=== PATIENT | female | born 1960 | race Asian ===

== ENCOUNTER 2021-06-23 17:34 | Emergency (ER) | payer OTHER, SELFPAY ==
[2021-06-23] VITALS (8 sets, daily range): BP systolic 125–185; BP diastolic 61–110; PULSE 109–180; RESP 22–39; TEMP 36.8; O2SAT 88–100; BMI 22.1
--- NOTE | 2021-06-23 18:29 | DI.RAD.S_ITS ---
PROCEDURE: XR CHEST 2V INDICATIONS: shortness of breath TECHNIQUE: 2 views of the chest were acquired. COMPARISON: None. FINDINGS: Surgical changes and devices: None. Lungs and pleura: Moderate right pleural effusion is seen with atelectasis of right middle and lower lobe. There is pulmonary vascular congestion and pulmonary edema. No gross pneumothorax. Mediastinum: Mediastinal contours are normal. Heart size is enlarged. Bones and chest wall: No suspicious bony abnormalities. Soft tissues appear unremarkable. IMPRESSION: Moderate right pleural effusion and right middle and lower lobe atelectasis. Pulmonary vascular congestion and pulmonary edema. No pneumothorax. Dictated by: Christopher Grimaldo M.D. on 06/23/2021 at 19:04 Approved by: Christopher Grimaldo M.D. on 06/23/2021 at 19:05
[2021-06-23 19:15] LABS: Alanine Aminotransferase 57 IU/L (<35); Albumin 4.3 g/dL (3.5-5.0); Albumin Globulin Ratio 1.2 (1.0-2.8); Alkaline Phosphatase 80 U/L (38-126); Aspartate Aminotransferase 73 IU/L (14-36); BUN Creatinine Ratio 31.3 (6-22); Bilirubin Total 1.4 mg/dL (0.2-1.3); Blood Urea Nitrogen 15 mg/dL (7-17); Calcium 8.8 mg/dL (8.4-10.2); Carbon Dioxide 25 mmol/L (22-32); Chloride 106 mmol/L (98-107); Estimated Glomerular Filt Rate > 60.0 mL/min (>60); Globulin 3.5 g/dL (1.7-4.1); Glucose 104 mg/dL (80-110); HEMOLYSIS 15 (0-50); Lactate (Lactic Acid) 0.9 mmol/L (0.7-2.1); Potassium 4.3 mmol/L (3.4-5.1); Sodium 136 mmol/L (137-145); Total Protein 7.8 g/dL (6.3-8.2)
[2021-06-23 19:16] LABS: Add Manual Diff / Slide Review NO; Basophils Absolute Auto 0 /uL (0-100); Basophils Percent Auto 0.3 % (0-2); Eosinophils Absolute Auto 0 /uL (0-450); Eosinophils Percent Auto 0.3 % (2-4); Hematocrit 38.2 % (36-46); Lymphocytes Absolute Auto 1100 /uL (1100-4500); Lymphocytes Percent Auto 9.8 % (25-40); Mean Corpuscular HGB Conc 33.9 % (30-36); Mean Corpuscular Volume 91.3 fL (80-100); Monocytes Absolute Auto 700 /uL (0-900); Monocytes Percent Auto 6.7 % (3-14); Neutrophils Absolute Auto 9000 /uL (1500-7000); Neutrophils Percent Auto 82.9 % (50-75); Platelet Count 296 X10^3/uL (150-400); Red Blood Cell Count 4.18 X10^6/uL (4.0-5.2); White Blood Cell Count 10.9 X10^3/uL (4.5-11.0)
[2021-06-23 19:27] LABS: NT-proBNP (BNP-Adult 18+) 5880 pg/mL (<125); Troponin I 0.093 ng/mL (0.01-0.034)
[2021-06-23 19:33] LABS: Procalcitonin 0.07 ng/mL (<0.5)
--- NOTE | 2021-06-23 21:48 | ED_ITS ---
HPI - SOB/Dyspnea <Kenrick Moe, DO - Last Filed: 06/24/21 19:03> General Chief Complaint: Shortness of Breath/Dyspnea Stated Complaint: SOB Time Seen by Provider: 06/23/21 21:47 Source: family Mode of arrival: Ambulatory Limitations: no limitations History of Present Illness HPI Narrative: 60-year-old female nonsmoker with history of reactive airway disease presents from the walk-in clinic for evaluation of shortness of breath. She states that she has been increasingly fatigued with worsening shortness of breath, primarily with exertion over the past week or so but significantly changed over the past 24 hours. She states that she gets short of breath with even taking a few steps . She has had no runny nose, sore throat nor fever or chills. She denies any chest pain, dizziness or lightheadedness. She has had no nausea, vomiting or diarrhea. She denies any history of the same. She denies any recent travel, history of blood clot or known cancer. Related Data Home Medications Medication Instructions Recorded Confirmed CA PANTOTHENATE/FOLIC ACID/VIT 1 tab PO QDAY #0 12/20/10 06/23/21 (MULTIVITAMIN) [ALBUTEROL] #0 12/20/10 06/23/21 [PULMICORT] 2 puff BID #0 12/20/10 06/23/21 fexofenadine 180 mg tablet 180 mg PO QDAY #0 12/20/10 06/23/21 ASPIRIN (Aspir-Low) 81 mg PO Q DAY #0 01/09/11 06/23/21 Fish Oil (#FISH OIL) 1 iu PO Q DAY #0 01/09/11 06/23/21 montelukast 10 mg tablet 10 mg PO QDAY #0 12/11/11 06/23/21 (Singulair) Previous Rx's Medication Instructions Recorded NORTRIPTYLINE HCL (Nortriptyline 10 mg PO HS #30 12/11/11 HCl) citalopram 20 mg tablet (Celexa) 40 mg PO QDAY #90 12/11/11 lorazepam 0.5 mg tablet (Ativan) 0 PO SEE INSTRUCTIONS #60 12/11/11 zolpidem 10 mg tablet (Ambien) 10 mg PO HSP #30 12/11/11 Allergies Allergy/AdvReac Type Severity Reaction Status Date / Time SULFA (sulfonamide) Allergy Unknown UNKNOWN Uncoded 06/23/21 17:10 Sulfites Allergy Unknown Uncoded 06/23/21 17:10 Review of Systems <Kenrick Moe DO - Last Filed: 06/24/21 19:03> Review of Systems Narrative: GENERAL: Denies chills, fatigue, malaise, fever, sweats. HEENT: Denies sinus pain, ear pain, sore throat, difficulty swallowing, dizziness. RESPIRATORY: See HPI CARDIOVASCULAR: Denies chest pain, palpitations, orthopnea, edema, GASTROINTESTINAL: Denies nausea, vomiting, abdominal pain, diarrhea, constipation, melena. : Denies dysuria, frequency, incontinence, hematuria, urinary retention. MUSCULOSKELETAL: denies weakness, joint pain, or bony pain SKIN: Denies rash, skin lesions, or other NEUROLOGIC: Denies weakness, headache, numbness, change in speech, confusion, seizures, incoordination. PSYCHIATRIC: No concerning psychosocial issues. 12 point review of systems is negative except for those stated above Patient History <Kenrick Moe DO - Last Filed: 06/24/21 19:03> Social History Smoking Status: Never smoker Smoking Status: Never smoker Substance Use Type: does not use Exam <Kenrick Moe DO - Last Filed: 06/24/21 19:03> Narrative Exam Narrative: GENERAL: [60] year old patient appears stated age. Thin, increased work of breathing HEAD: Atraumatic. Normocephalic. EYES: Pupils equal round and reactive. Extraocular motions intact. No scleral icterus. No injection or drainage. ENT: Nose without bleeding, purulent drainage. Throat without erythema, tonsillar hypertrophy or exudate. Airway patent. NECK: Trachea midline. Non tender CARDIOVASCULAR: Tachycardic but regular rhythm with notable holosystolic murmur RESPIRATORY: Decreased lung sounds right base with faint crackles in left, increased work of breathing GASTROINTESTINAL: Abdomen soft, non-tender, nondistended. EXTREMITIES: No edema or joint tenderness. BACK: Nontender without deformity or crepitance. No flank tenderness. NEURO: AOx3. SKIN: No rash or erythema of visible areas Initial Vital Signs Initial Vital Signs: Vital Signs Temperature 98.2 F 06/23/21 18:23 Pulse Rate 110 H 06/23/21 18:23 Respiratory Rate 22 06/23/21 18:23 Blood Pressure 125/61 06/23/21 18:23 Pulse Oximetry 97 06/23/21 18:23 <Darryl Menchaca MD - Last Filed: 06/24/21 18:25> Initial Vital Signs Initial Vital Signs: Vital Signs Temperature 98.2 F 06/23/21 18:23 Pulse Rate 110 H 06/23/21 18:23 Respiratory Rate 22 06/23/21 18:23 Blood Pressure 125/61 06/23/21 18:23 Pulse Oximetry 97 06/23/21 18:23 Course <Kenrick Moe DO - Last Filed: 06/24/21 19:03> Orders Ordered: ED Orders 06/24/21 13:48 PTT [Partial Thromboplastin Time] Q6H 06/24/21 14:25 Troponin I Stat 06/24/21 19:45 PTT [Partial Thromboplastin Time] Q6H 06/25/21 01:30 PTT [Partial Thromboplastin Time] Q6H Partial Thromboplastin Time DAILY 06/25/21 05:00 Hemoglobin and Hematocrit DAILY 06/26/21 01:30 Partial Thromboplastin Time DAILY 06/27/21 01:30 Partial Thromboplastin Time DAILY 06/28/21 01:30 Partial Thromboplastin Time DAILY 06/29/21 01:30 Partial Thromboplastin Time DAILY 06/30/21 01:30 Partial Thromboplastin Time DAILY Heparin Sodium/Dextrose (Heparin Drip) 25,000 unit in 500 mls @ 20 mls/hr IV CONT LEONA; Protocol Last Titration: 06/24/21 18:42 Dose: 0 units/hr, 0 mls/hr Documented by: Titration: 06/24/21 09:45 Dose: 850 units/hr, 17 mls/hr Documented by: Titration: 06/24/21 08:46 Dose: 0 units/hr, 0 mls/hr Documented by: Admin: 06/24/21 02:15 Dose: 1,000 units/hr, 20 mls/hr Documented by: THALIA Amiodarone HCl/Dextrose (Nexterone) 360 mg in 200 mls @ 16.7 mls/hr IV CONT LEONA; Protocol Stop: 06/24/21 19:44 Last Titration: 06/24/21 18:53 Dose: 0 mls/hr Documented by: Admin: 06/24/21 18:52 Dose: 16.7 mls/hr Documented by: Titration: 06/24/21 18:52 Dose: 0 mls/hr Documented by: Titration: 06/24/21 18:43 Dose: 0 mls/hr Documented by: Admin: 06/24/21 07:41 Dose: 16.7 ml/hr, 16.7 mls/hr Documented by: NANDO Discontinued Medications Acetaminophen (Acetaminophen 325 Mg Tablet) 650 mg PO NOW ONE Stop: 06/24/21 05:44 Last Admin: 06/24/21 05:45 Dose: 650 mg Documented by: THALIA Acetaminophen (Acetaminophen 325 Mg Tablet) 650 mg PO NOW ONE Stop: 06/24/21 15:23 Last Admin: 06/24/21 15:36 Dose: 650 mg Documented by: LYNDSEY Adenosine (Adenosine 6 Mg/2 Ml Vial) 6 mg IV NOW ONE Stop: 06/24/21 00:00 Last Admin: 06/24/21 00:05 Dose: 6 mg Documented by: THALIA Albuterol (Albuterol 1.25 Mg/3 Ml Neb (Pediatric)) 1.25 mg INH NOW ONE Stop: 06/23/21 23:25 Last Admin: 06/24/21 07:41 Dose: Not Given Documented by: NANDO Diltiazem HCl (Diltiazem 5 Mg/Ml Sdv) 10 mg IV NOW ONE Stop: 06/23/21 23:29 Last Admin: 06/23/21 23:30 Dose: 10 mg Documented by: THALIA Furosemide (Furosemide 40 Mg/4 Ml Vial) 40 mg IV NOW ONE Stop: 06/24/21 02:24 Last Admin: 06/24/21 02:29 Dose: 40 mg Documented by: THALIA Furosemide (Furosemide 40 Mg/4 Ml Vial) 40 mg IV NOW ONE Stop: 06/24/21 05:33 Last Admin: 06/24/21 05:36 Dose: 20 mg Documented by: THALIA Furosemide (Furosemide 40 Mg/4 Ml Vial) 40 mg IV NOW ONE Stop: 06/24/21 17:37 Last Admin: 06/24/21 17:55 Dose: 40 mg Documented by: LYNDSEY Heparin Sodium (Porcine) (Heparin 5,000 Unit/Ml Vial) 4,000 unit IV NOW ONE Stop: 06/24/21 01:25 Last Admin: 06/24/21 01:54 Dose: 4,000 unit Documented by: THALIA Amiodarone HCl/Dextrose (Nexterone) 150 mg in 100 mls @ 600 mls/hr IV NOW ONE; Protocol Stop: 06/24/21 01:33 Last Infusion: 06/24/21 01:50 Dose: 0 mls/hr Documented by: Admin: 06/24/21 01:37 Dose: 600 mls/hr Documented by: THALIA Amiodarone HCl/Dextrose (Nexterone) 360 mg in 200 mls @ 33.333 mls/hr IV NOW ONE; Protocol Stop: 06/24/21 07:23 Last Titration: 06/24/21 07:36 Dose: 0 ml/hr, 0 mls/hr Documented by: Admin: 06/24/21 01:49 Dose: 33.33 ml/hr, 33.33 mls/hr Documented by: THALIA Lorazepam (Lorazepam 2 Mg/Ml Inj) 0.5 mg IV NOW ONE Stop: 06/23/21 23:53 Last Admin: 06/24/21 02:09 Dose: 0.5 mg Documented by: THALIA Potassium Chloride (Potassium Chloride 20 Meq Tab) 20 meq PO NOW ONE Stop: 06/24/21 17:39 Last Admin: 06/24/21 17:55 Dose: 20 meq Documented by: LYNDSEY Propofol (Propofol 200 Mg/20 Ml Vial) 55 mg 1 mg/kg (55 mg) IV NOW ONE Stop: 06/24/21 00:11 Last Admin: 06/24/21 00:34 Dose: 30 mg Documented by: THALIA Reevaluation(s) Reevaluation #1: 775 dilute urine in wiggins after Lasix Time: 03:30 Consultations Consultation #1: call to Dr. Gusman (cardiology at [facility]). She finds an old echo from 2010 noting critical aortic stenosis (0.9 cm sq) with aortic insufficiency, LVH, diastolic failure and eF 60-65%. She recommends rate control with amiodarone, heparin, transfer to [facility] or other hospital with ICU/Cardio ERICKA Consultation #2: call to [facility] ICU. After lengthy discussion of clinical course he recommends diuresis here, monitor for decreased need for respiratory support and reevaluate in a few hours. Vital Signs Vital signs: Vital Signs - 8 hr 06/24/21 11:15 06/24/21 11:30 06/24/21 11:45 Pulse Rate 82 90 91 H Respiratory Rate 16 28 H 30 H Blood Pressure 107/65 112/68 119/71 Pulse Oximetry 99 97 97 06/24/21 12:00 06/24/21 12:15 06/24/21 12:30 Pulse Rate 84 80 91 H Respiratory Rate 18 14 28 H Blood Pressure 118/68 109/62 118/66 Pulse Oximetry 99 99 98 06/24/21 12:45 06/24/21 13:00 06/24/21 13:15 Pulse Rate 86 81 86 Respiratory Rate 29 H 15 20 Blood Pressure 115/64 112/61 116/70 Pulse Oximetry 97 99 100 06/24/21 13:30 06/24/21 13:45 06/24/21 14:00 Pulse Rate 89 88 82 Respiratory Rate 27 H 30 H 24 Blood Pressure 118/65 114/64 109/59 L Pulse Oximetry 99 98 97 06/24/21 14:15 06/24/21 14:30 06/24/21 14:45 Pulse Rate 79 86 86 Respiratory Rate 15 31 H 27 H Blood Pressure 108/63 107/63 105/63 Pulse Oximetry 99 97 96 06/24/21 15:00 06/24/21 15:15 06/24/21 15:30 Pulse Rate 88 89 86 Respiratory Rate 28 H 29 H 29 H Blood Pressure 105/63 116/73 111/69 Pulse Oximetry 98 97 97 06/24/21 15:45 06/24/21 16:00 06/24/21 16:15 Pulse Rate 88 88 81 Respiratory Rate 22 28 H 16 Blood Pressure 133/83 112/67 105/61 Pulse Oximetry 98 99 06/24/21 16:30 06/24/21 16:45 06/24/21 17:00 Pulse Rate 79 89 90 Respiratory Rate 14 31 H 30 H Blood Pressure 102/61 112/66 113/72 Pulse Oximetry 99 96 97 06/24/21 17:15 06/24/21 17:30 06/24/21 17:45 Pulse Rate 86 87 87 Respiratory Rate 29 H 32 H 29 H Blood Pressure 108/59 L 111/64 104/61 Pulse Oximetry 97 98 98 06/24/21 18:00 06/24/21 18:15 06/24/21 18:30 Pulse Rate 86 89 91 H Respiratory Rate 30 H 28 H 32 H Blood Pressure 107/64 112/74 114/76 Pulse Oximetry 97 97 97 <Darryl Menchaca MD - Last Filed: 06/24/21 18:25> Orders Ordered: ED Orders 06/24/21 13:48 PTT [Partial Thromboplastin Time] Q6H 06/24/21 14:25 Troponin I Stat 06/24/21 19:45 PTT [Partial Thromboplastin Time] Q6H 06/25/21 01:30 PTT [Partial Thromboplastin Time] Q6H Partial Thromboplastin Time DAILY 06/25/21 05:00 Hemoglobin and Hematocrit DAILY 06/26/21 01:30 Partial Thromboplastin Time DAILY 06/27/21 01:30 Partial Thromboplastin Time DAILY 06/28/21 01:30 Partial Thromboplastin Time DAILY 06/29/21 01:30 Partial Thromboplastin Time DAILY 06/30/21 01:30 Partial Thromboplastin Time DAILY Heparin Sodium/Dextrose (Heparin Drip) 25,000 unit in 500 mls @ 20 mls/hr IV CONT LEONA; Protocol Last Titration: 06/24/21 18:42 Dose: 0 units/hr, 0 mls/hr Documented by: Titration: 06/24/21 09:45 Dose: 850 units/hr, 17 mls/hr Documented by: Titration: 06/24/21 08:46 Dose: 0 units/hr, 0 mls/hr Documented by: Admin: 06/24/21 02:15 Dose: 1,000 units/hr, 20 mls/hr Documented by: THALIA Amiodarone HCl/Dextrose (Nexterone) 360 mg in 200 mls @ 16.7 mls/hr IV CONT LEONA; Protocol Stop: 06/24/21 19:44 Last Titration: 06/24/21 18:53 Dose: 0 mls/hr Documented by: Admin: 06/24/21 18:52 Dose: 16.7 mls/hr Documented by: Titration: 06/24/21 18:52 Dose: 0 mls/hr Documented by: Titration: 06/24/21 18:43 Dose: 0 mls/hr Documented by: Admin: 06/24/21 07:41 Dose: 16.7 ml/hr, 16.7 mls/hr Documented by: NANDO Discontinued Medications Acetaminophen (Acetaminophen 325 Mg Tablet) 650 mg PO NOW ONE Stop: 06/24/21 05:44 Last Admin: 06/24/21 05:45 Dose: 650 mg Documented by: THALIA Acetaminophen (Acetaminophen 325 Mg Tablet) 650 mg PO NOW ONE Stop: 06/24/21 15:23 Last Admin: 06/24/21 15:36 Dose: 650 mg Documented by: LYNDSEY Adenosine (Adenosine 6 Mg/2 Ml Vial) 6 mg IV NOW ONE Stop: 06/24/21 00:00 Last Admin: 06/24/21 00:05 Dose: 6 mg Documented by: THALIA Albuterol (Albuterol 1.25 Mg/3 Ml Neb (Pediatric)) 1.25 mg INH NOW ONE Stop: 06/23/21 23:25 Last Admin: 06/24/21 07:41 Dose: Not Given Documented by: NANDO Diltiazem HCl (Diltiazem 5 Mg/Ml Sdv) 10 mg IV NOW ONE Stop: 06/23/21 23:29 Last Admin: 06/23/21 23:30 Dose: 10 mg Documented by: THALIA Furosemide (Furosemide 40 Mg/4 Ml Vial) 40 mg IV NOW ONE Stop: 06/24/21 02:24 Last Admin: 06/24/21 02:29 Dose: 40 mg Documented by: THALIA Furosemide (Furosemide 40 Mg/4 Ml Vial) 40 mg IV NOW ONE Stop: 06/24/21 05:33 Last Admin: 06/24/21 05:36 Dose: 20 mg Documented by: THALIA Furosemide (Furosemide 40 Mg/4 Ml Vial) 40 mg IV NOW ONE Stop: 06/24/21 17:37 Last Admin: 06/24/21 17:55 Dose: 40 mg Documented by: LYNDSEY Heparin Sodium (Porcine) (Heparin 5,000 Unit/Ml Vial) 4,000 unit IV NOW ONE Stop: 06/24/21 01:25 Last Admin: 06/24/21 01:54 Dose: 4,000 unit Documented by: THALIA Amiodarone HCl/Dextrose (Nexterone) 150 mg in 100 mls @ 600 mls/hr IV NOW ONE; Protocol Stop: 06/24/21 01:33 Last Infusion: 06/24/21 01:50 Dose: 0 mls/hr Documented by: Admin: 06/24/21 01:37 Dose: 600 mls/hr Documented by: THALIA Amiodarone HCl/Dextrose (Nexterone) 360 mg in 200 mls @ 33.333 mls/hr IV NOW ONE; Protocol Stop: 06/24/21 07:23 Last Titration: 06/24/21 07:36 Dose: 0 ml/hr, 0 mls/hr Documented by: Admin: 06/24/21 01:49 Dose: 33.33 ml/hr, 33.33 mls/hr Documented by: THALIA Lorazepam (Lorazepam 2 Mg/Ml Inj) 0.5 mg IV NOW ONE Stop: 06/23/21 23:53 Last Admin: 06/24/21 02:09 Dose: 0.5 mg Documented by: THALIA Potassium Chloride (Potassium Chloride 20 Meq Tab) 20 meq PO NOW ONE Stop: 06/24/21 17:39 Last Admin: 06/24/21 17:55 Dose: 20 meq Documented by: LYNDSEY Propofol (Propofol 200 Mg/20 Ml Vial) 55 mg 1 mg/kg (55 mg) IV NOW ONE Stop: 06/24/21 00:11 Last Admin: 06/24/21 00:34 Dose: 30 mg Documented by: THALIA Vital Signs Vital signs: Vital Signs - 8 hr 06/24/21 11:15 06/24/21 11:30 06/24/21 11:45 Pulse Rate 82 90 91 H Respiratory Rate 16 28 H 30 H Blood Pressure 107/65 112/68 119/71 Pulse Oximetry 99 97 97 06/24/21 12:00 06/24/21 12:15 06/24/21 12:30 Pulse Rate 84 80 91 H Respiratory Rate 18 14 28 H Blood Pressure 118/68 109/62 118/66 Pulse Oximetry 99 99 98 06/24/21 12:45 06/24/21 13:00 06/24/21 13:15 Pulse Rate 86 81 86 Respiratory Rate 29 H 15 20 Blood Pressure 115/64 112/61 116/70 Pulse Oximetry 97 99 100 06/24/21 13:30 06/24/21 13:45 06/24/21 14:00 Pulse Rate 89 88 82 Respiratory Rate 27 H 30 H 24 Blood Pressure 118/65 114/64 109/59 L Pulse Oximetry 99 98 97 06/24/21 14:15 06/24/21 14:30 06/24/21 14:45 Pulse Rate 79 86 86 Respiratory Rate 15 31 H 27 H Blood Pressure 108/63 107/63 105/63 Pulse Oximetry 99 97 96 06/24/21 15:00 06/24/21 15:15 06/24/21 15:30 Pulse Rate 88 89 86 Respiratory Rate 28 H 29 H 29 H Blood Pressure 105/63 116/73 111/69 Pulse Oximetry 98 97 97 06/24/21 15:45 06/24/21 16:00 06/24/21 16:15 Pulse Rate 88 88 81 Respiratory Rate 22 28 H 16 Blood Pressure 133/83 112/67 105/61 Pulse Oximetry 98 99 06/24/21 16:30 06/24/21 16:45 06/24/21 17:00 Pulse Rate 79 89 90 Respiratory Rate 14 31 H 30 H Blood Pressure 102/61 112/66 113/72 Pulse Oximetry 99 96 97 06/24/21 17:15 06/24/21 17:30 06/24/21 17:45 Pulse Rate 86 87 87 Respiratory Rate 29 H 32 H 29 H Blood Pressure 108/59 L 111/64 104/61 Pulse Oximetry 97 98 98 06/24/21 18:00 06/24/21 18:15 06/24/21 18:30 Pulse Rate 86 89 91 H Respiratory Rate 30 H 28 H 32 H Blood Pressure 107/64 112/74 114/76 Pulse Oximetry 97 97 97 MDM - SOB/Dyspnea <Kenrick Moe, DO - Last Filed: 06/24/21 19:03> Lab Data Result diagrams: 06/24/21 07:50 06/24/21 07:50 Labs: Lab Results 06/23/21 06/23/21 06/23/21 Range/Units 18:44 18:44 18:44 WBC 10.9 (4.5-11.0) X10^3/uL RBC 4.18 (4.0-5.2) X10^6/uL Hgb 13.0 (12.0-16.0) g/dL Hct 38.2 (36-46) % MCV 91.3 (80-100) fL MCH 31.0 (26-34) PG MCHC 33.9 (30-36) % RDW 14.0 (11.6-14.8) % Plt Count 296 (150-400) X10^3/uL Neut % (Auto) 82.9 H (50-75) % Lymph % (Auto) 9.8 L (25-40) % [place] % (Auto) 6.7 (3-14) % Eos % (Auto) 0.3 L (2-4) % Baso % (Auto) 0.3 (0-2) % Neut # (Auto) 9000 H (3862-4485) /uL Lymph # (Auto) 1100 (4515-7453) /uL [place] # (Auto) 700 (0-900) /uL Eos # (Auto) 0 (0-450) /uL Baso # (Auto) 0 (0-100) /uL APTT (26.4-36.2) SECONDS ABG pH (7.35-7.45) ABG pCO2 (35-45) mmHg ABG pO2 (80-100) mmHg ABG HCO3 (22-26) mmol/L ABG Total CO2 (21-31) mmol/L ABG O2 Saturation (95-100) % ABG Base Excess (-2-2) mmol/L FiO2 Sodium 136 L (137-145) mmol/L Potassium 4.3 (3.4-5.1) mmol/L Chloride 106 (98-107) mmol/L Carbon Dioxide 25 (22-32) mmol/L BUN 15 (7-17) mg/dL Creatinine 0.48 L (0.52-1.04) mg/dL Estimated GFR > 60.0 (>60) mL/min BUN/Creatinine Ratio 31.3 H (6-22) Glucose 104 (80-110) mg/dL Lactate 0.9 (0.7-2.1) mmol/L Calcium 8.8 (8.4-10.2) mg/dL Magnesium (1.6-2.3) mg/dL Total Bilirubin 1.4 H (0.2-1.3) mg/dL AST 73 H (14-36) IU/L ALT 57 H (<35) IU/L Alkaline Phosphatase 80 (38-126) U/L Troponin I (0.01-0.034) ng/mL NT-Pro-B Natriuret Pep (<125) pg/mL Total Protein 7.8 (6.3-8.2) g/dL Albumin 4.3 (3.5-5.0) g/dL Globulin 3.5 (1.7-4.1) g/dL Albumin/Globulin Ratio 1.2 (1.0-2.8) Procalcitonin (<0.5) ng/mL SARS-CoV-2 (PCR) (Negative) 06/23/21 06/23/21 06/24/21 Range/Units 18:44 18:44 00:45 WBC (4.5-11.0) X10^3/uL RBC (4.0-5.2) X10^6/uL Hgb (12.0-16.0) g/dL Hct (36-46) % MCV (80-100) fL MCH (26-34) PG MCHC (30-36) % RDW (11.6-14.8) % Plt Count (150-400) X10^3/uL Neut % (Auto) (50-75) % Lymph % (Auto) (25-40) % [place] % (Auto) (3-14) % Eos % (Auto) (2-4) % Baso % (Auto) (0-2) % Neut # (Auto) (8979-5647) /uL Lymph # (Auto) (6750-3079) /uL [place] # (Auto) (0-900) /uL Eos # (Auto) (0-450) /uL Baso # (Auto) (0-100) /uL APTT (26.4-36.2) SECONDS ABG pH (7.35-7.45) ABG pCO2 (35-45) mmHg ABG pO2 (80-100) mmHg ABG HCO3 (22-26) mmol/L ABG Total CO2 (21-31) mmol/L ABG O2 Saturation (95-100) % ABG Base Excess (-2-2) mmol/L FiO2 Sodium (137-145) mmol/L Potassium (3.4-5.1) mmol/L Chloride (98-107) mmol/L Carbon Dioxide (22-32) mmol/L BUN (7-17) mg/dL Creatinine (0.52-1.04) mg/dL Estimated GFR (>60) mL/min BUN/Creatinine Ratio (6-22) Glucose (80-110) mg/dL Lactate (0.7-2.1) mmol/L Calcium (8.4-10.2) mg/dL Magnesium (1.6-2.3) mg/dL Total Bilirubin (0.2-1.3) mg/dL AST (14-36) IU/L ALT (<35) IU/L Alkaline Phosphatase (38-126) U/L Troponin I 0.093 H (0.01-0.034) ng/mL NT-Pro-B Natriuret Pep 5880 H (<125) pg/mL Total Protein (6.3-8.2) g/dL Albumin (3.5-5.0) g/dL Globulin (1.7-4.1) g/dL Albumin/Globulin Ratio (1.0-2.8) Procalcitonin 0.07 (<0.5) ng/mL SARS-CoV-2 (PCR) Negative (Negative) 06/24/21 06/24/21 06/24/21 Range/Units 01:05 01:45 07:50 WBC (4.5-11.0) X10^3/uL RBC (4.0-5.2) X10^6/uL Hgb 12.4 (12.0-16.0) g/dL Hct 37.2 (36-46) % MCV (80-100) fL MCH (26-34) PG MCHC (30-36) % RDW (11.6-14.8) % Plt Count (150-400) X10^3/uL Neut % (Auto) (50-75) % Lymph % (Auto) (25-40) % [place] % (Auto) (3-14) % Eos % (Auto) (2-4) % Baso % (Auto) (0-2) % Neut # (Auto) (2129-1880) /uL Lymph # (Auto) (8319-5485) /uL [place] # (Auto) (0-900) /uL Eos # (Auto) (0-450) /uL Baso # (Auto) (0-100) /uL APTT 27 (26.4-36.2) SECONDS ABG pH 7.33 L (7.35-7.45) ABG pCO2 45.8 H (35-45) mmHg ABG pO2 276 H* (80-100) mmHg ABG HCO3 24 (22-26) mmol/L ABG Total CO2 26 (21-31) mmol/L ABG O2 Saturation 100 (95-100) % ABG Base Excess -1.0 (-2-2) mmol/L FiO2 100 Sodium (137-145) mmol/L Potassium (3.4-5.1) mmol/L Chloride (98-107) mmol/L Carbon Dioxide (22-32) mmol/L BUN (7-17) mg/dL Creatinine (0.52-1.04) mg/dL Estimated GFR (>60) mL/min BUN/Creatinine Ratio (6-22) Glucose (80-110) mg/dL Lactate (0.7-2.1) mmol/L Calcium (8.4-10.2) mg/dL Magnesium (1.6-2.3) mg/dL Total Bilirubin (0.2-1.3) mg/dL AST (14-36) IU/L ALT (<35) IU/L Alkaline Phosphatase (38-126) U/L Troponin I (0.01-0.034) ng/mL NT-Pro-B Natriuret Pep (<125) pg/mL Total Protein (6.3-8.2) g/dL Albumin (3.5-5.0) g/dL Globulin (1.7-4.1) g/dL Albumin/Globulin Ratio (1.0-2.8) Procalcitonin (<0.5) ng/mL SARS-CoV-2 (PCR) (Negative) 06/24/21 06/24/21 06/24/21 Range/Units 07:50 07:50 07:50 WBC (4.5-11.0) X10^3/uL RBC (4.0-5.2) X10^6/uL Hgb (12.0-16.0) g/dL Hct (36-46) % MCV (80-100) fL MCH (26-34) PG MCHC (30-36) % RDW (11.6-14.8) % Plt Count (150-400) X10^3/uL Neut % (Auto) (50-75) % Lymph % (Auto) (25-40) % [place] % (Auto) (3-14) % Eos % (Auto) (2-4) % Baso % (Auto) (0-2) % Neut # (Auto) (8880-4953) /uL Lymph # (Auto) (6077-5934) /uL [place] # (Auto) (0-900) /uL Eos # (Auto) (0-450) /uL Baso # (Auto) (0-100) /uL APTT 109 H* D (26.4-36.2) SECONDS ABG pH (7.35-7.45) ABG pCO2 (35-45) mmHg ABG pO2 (80-100) mmHg ABG HCO3 (22-26) mmol/L ABG Total CO2 (21-31) mmol/L ABG O2 Saturation (95-100) % ABG Base Excess (-2-2) mmol/L FiO2 Sodium 136 L (137-145) mmol/L Potassium 3.7 (3.4-5.1) mmol/L Chloride 102 (98-107) mmol/L Carbon Dioxide 28 (22-32) mmol/L BUN 17 (7-17) mg/dL Creatinine 0.57 (0.52-1.04) mg/dL Estimated GFR > 60.0 (>60) mL/min BUN/Creatinine Ratio 29.8 H (6-22) Glucose 143 H (80-110) mg/dL Lactate (0.7-2.1) mmol/L Calcium 8.0 L (8.4-10.2) mg/dL Magnesium 2.0 (1.6-2.3) mg/dL Total Bilirubin (0.2-1.3) mg/dL AST (14-36) IU/L ALT (<35) IU/L Alkaline Phosphatase (38-126) U/L Troponin I (0.01-0.034) ng/mL NT-Pro-B Natriuret Pep (<125) pg/mL Total Protein (6.3-8.2) g/dL Albumin (3.5-5.0) g/dL Globulin (1.7-4.1) g/dL Albumin/Globulin Ratio (1.0-2.8) Procalcitonin (<0.5) ng/mL SARS-CoV-2 (PCR) (Negative) 06/24/21 06/24/21 06/24/21 Range/Units 07:50 13:48 14:25 WBC (4.5-11.0) X10^3/uL RBC (4.0-5.2) X10^6/uL Hgb (12.0-16.0) g/dL Hct (36-46) % MCV (80-100) fL MCH (26-34) PG MCHC (30-36) % RDW (11.6-14.8) % Plt Count (150-400) X10^3/uL Neut % (Auto) (50-75) % Lymph % (Auto) (25-40) % [place] % (Auto) (3-14) % Eos % (Auto) (2-4) % Baso % (Auto) (0-2) % Neut # (Auto) (3947-7121) /uL Lymph # (Auto) (6287-2740) /uL [place] # (Auto) (0-900) /uL Eos # (Auto) (0-450) /uL Baso # (Auto) (0-100) /uL APTT 53 H D (26.4-36.2) SECONDS ABG pH (7.35-7.45) ABG pCO2 (35-45) mmHg ABG pO2 (80-100) mmHg ABG HCO3 (22-26) mmol/L ABG Total CO2 (21-31) mmol/L ABG O2 Saturation (95-100) % ABG Base Excess (-2-2) mmol/L FiO2 Sodium (137-145) mmol/L Potassium (3.4-5.1) mmol/L Chloride (98-107) mmol/L Carbon Dioxide (22-32) mmol/L BUN (7-17) mg/dL Creatinine (0.52-1.04) mg/dL Estimated GFR (>60) mL/min BUN/Creatinine Ratio (6-22) Glucose (80-110) mg/dL Lactate (0.7-2.1) mmol/L Calcium (8.4-10.2) mg/dL Magnesium (1.6-2.3) mg/dL Total Bilirubin (0.2-1.3) mg/dL AST (14-36) IU/L ALT (<35) IU/L Alkaline Phosphatase (38-126) U/L Troponin I 0.341 H* 0.238 H* (0.01-0.034) ng/mL NT-Pro-B Natriuret Pep (<125) pg/mL Total Protein (6.3-8.2) g/dL Albumin (3.5-5.0) g/dL Globulin (1.7-4.1) g/dL Albumin/Globulin Ratio (1.0-2.8) Procalcitonin (<0.5) ng/mL SARS-CoV-2 (PCR) (Negative) Point of Care Testing Test Results Not applicable MDM Narrative Medical decision making narrative: Patient presents with shortness of breath with minimal exertion, increased work of breathing and elevated heart rate. She has what sounds like a newly discovered murmur. She has episodes of heart rate jumping to the 180s. Initially she is given Cardizem which slowed her only briefly. She becomes significantly short of breath when her tachycardia increases. Advanced imaging shows pulmonary HTN, cardiomegally, no PE or pericardial effusion. Patient with very little reserve, she is quite sensitive to elevations in heart rate. Initially she had a very brief improvement with modified Valsalva maneuver. This was followed by push of Cardizem which slowed her briefly. When she began rising again she was moved to our [facility] [place] and was given adenosine which was unsuccessful. She was then consented for procedural sedation and electrical cardioversion which did not respond to 120 joules but after 200 joules she was no longer in an SVT and slow to a sinus rate of about 110. Along with his her blood pressure improved from the 190s down to the 120s and this improved her work of breathing and tolerance of BiPAP 0530 - called back to ICU at [facility] to discuss current clinical picture. She has made 1000mL of dilute urine and was able to come off bipap. She is currently on 8L by ID and breathing 30-40 and relatively shallow. She states she feels much better. She has good color and is perfusing well. HR is sinus tach at right around 100 and BP is 130/80. Patient and son made aware of situation and understand (and agree with) the current diagnosis and plan <Darryl Menchaca MD - Last Filed: 06/24/21 18:25> Lab Data Labs: Lab Results 06/23/21 06/23/21 06/23/21 Range/Units 18:44 18:44 18:44 WBC 10.9 (4.5-11.0) X10^3/uL RBC 4.18 (4.0-5.2) X10^6/uL Hgb 13.0 (12.0-16.0) g/dL Hct 38.2 (36-46) % MCV 91.3 (80-100) fL MCH 31.0 (26-34) PG MCHC 33.9 (30-36) % RDW 14.0 (11.6-14.8) % Plt Count 296 (150-400) X10^3/uL Neut % (Auto) 82.9 H (50-75) % Lymph % (Auto) 9.8 L (25-40) % [place] % (Auto) 6.7 (3-14) % Eos % (Auto) 0.3 L (2-4) % Baso % (Auto) 0.3 (0-2) % Neut # (Auto) 9000 H (9339-5721) /uL Lymph # (Auto) 1100 (6233-0198) /uL [place] # (Auto) 700 (0-900) /uL Eos # (Auto) 0 (0-450) /uL Baso # (Auto) 0 (0-100) /uL APTT (26.4-36.2) SECONDS ABG pH (7.35-7.45) ABG pCO2 (35-45) mmHg ABG pO2 (80-100) mmHg ABG HCO3 (22-26) mmol/L ABG Total CO2 (21-31) mmol/L ABG O2 Saturation (95-100) % ABG Base Excess (-2-2) mmol/L FiO2 Sodium 136 L (137-145) mmol/L Potassium 4.3 (3.4-5.1) mmol/L Chloride 106 (98-107) mmol/L Carbon Dioxide 25 (22-32) mmol/L BUN 15 (7-17) mg/dL Creatinine 0.48 L (0.52-1.04) mg/dL Estimated GFR > 60.0 (>60) mL/min BUN/Creatinine Ratio 31.3 H (6-22) Glucose 104 (80-110) mg/dL Lactate 0.9 (0.7-2.1) mmol/L Calcium 8.8 (8.4-10.2) mg/dL Magnesium (1.6-2.3) mg/dL Total Bilirubin 1.4 H (0.2-1.3) mg/dL AST 73 H (14-36) IU/L ALT 57 H (<35) IU/L Alkaline Phosphatase 80 (38-126) U/L Troponin I (0.01-0.034) ng/mL NT-Pro-B Natriuret Pep (<125) pg/mL Total Protein 7.8 (6.3-8.2) g/dL Albumin 4.3 (3.5-5.0) g/dL Globulin 3.5 (1.7-4.1) g/dL Albumin/Globulin Ratio 1.2 (1.0-2.8) Procalcitonin (<0.5) ng/mL SARS-CoV-2 (PCR) (Negative) 06/23/21 06/23/21 06/24/21 Range/Units 18:44 18:44 00:45 WBC (4.5-11.0) X10^3/uL RBC (4.0-5.2) X10^6/uL Hgb (12.0-16.0) g/dL Hct (36-46) % MCV (80-100) fL MCH (26-34) PG MCHC (30-36) % RDW (11.6-14.8) % Plt Count (150-400) X10^3/uL Neut % (Auto) (50-75) % Lymph % (Auto) (25-40) % [place] % (Auto) (3-14) % Eos % (Auto) (2-4) % Baso % (Auto) (0-2) % Neut # (Auto) (2152-2107) /uL Lymph # (Auto) (2103-2298) /uL [place] # (Auto) (0-900) /uL Eos # (Auto) (0-450) /uL Baso # (Auto) (0-100) /uL APTT (26.4-36.2) SECONDS ABG pH (7.35-7.45) ABG pCO2 (35-45) mmHg ABG pO2 (80-100) mmHg ABG HCO3 (22-26) mmol/L ABG Total CO2 (21-31) mmol/L ABG O2 Saturation (95-100) % ABG Base Excess (-2-2) mmol/L FiO2 Sodium (137-145) mmol/L Potassium (3.4-5.1) mmol/L Chloride (98-107) mmol/L Carbon Dioxide (22-32) mmol/L BUN (7-17) mg/dL Creatinine (0.52-1.04) mg/dL Estimated GFR (>60) mL/min BUN/Creatinine Ratio (6-22) Glucose (80-110) mg/dL Lactate (0.7-2.1) mmol/L Calcium (8.4-10.2) mg/dL Magnesium (1.6-2.3) mg/dL Total Bilirubin (0.2-1.3) mg/dL AST (14-36) IU/L ALT (<35) IU/L Alkaline Phosphatase (38-126) U/L Troponin I 0.093 H (0.01-0.034) ng/mL NT-Pro-B Natriuret Pep 5880 H (<125) pg/mL Total Protein (6.3-8.2) g/dL Albumin (3.5-5.0) g/dL Globulin (1.7-4.1) g/dL Albumin/Globulin Ratio (1.0-2.8) Procalcitonin 0.07 (<0.5) ng/mL SARS-CoV-2 (PCR) Negative (Negative) 06/24/21 06/24/21 06/24/21 Range/Units 01:05 01:45 07:50 WBC (4.5-11.0) X10^3/uL RBC (4.0-5.2) X10^6/uL Hgb 12.4 (12.0-16.0) g/dL Hct 37.2 (36-46) % MCV (80-100) fL MCH (26-34) PG MCHC (30-36) % RDW (11.6-14.8) % Plt Count (150-400) X10^3/uL Neut % (Auto) (50-75) % Lymph % (Auto) (25-40) % [place] % (Auto) (3-14) % Eos % (Auto) (2-4) % Baso % (Auto) (0-2) % Neut # (Auto) (4330-3822) /uL Lymph # (Auto) (0924-4188) /uL [place] # (Auto) (0-900) /uL Eos # (Auto) (0-450) /uL Baso # (Auto) (0-100) /uL APTT 27 (26.4-36.2) SECONDS ABG pH 7.33 L (7.35-7.45) ABG pCO2 45.8 H (35-45) mmHg ABG pO2 276 H* (80-100) mmHg ABG HCO3 24 (22-26) mmol/L ABG Total CO2 26 (21-31) mmol/L ABG O2 Saturation 100 (95-100) % ABG Base Excess -1.0 (-2-2) mmol/L FiO2 100 Sodium (137-145) mmol/L Potassium (3.4-5.1) mmol/L Chloride (98-107) mmol/L Carbon Dioxide (22-32) mmol/L BUN (7-17) mg/dL Creatinine (0.52-1.04) mg/dL Estimated GFR (>60) mL/min BUN/Creatinine Ratio (6-22) Glucose (80-110) mg/dL Lactate (0.7-2.1) mmol/L Calcium (8.4-10.2) mg/dL Magnesium (1.6-2.3) mg/dL Total Bilirubin (0.2-1.3) mg/dL AST (14-36) IU/L ALT (<35) IU/L Alkaline Phosphatase (38-126) U/L Troponin I (0.01-0.034) ng/mL NT-Pro-B Natriuret Pep (<125) pg/mL Total Protein (6.3-8.2) g/dL Albumin (3.5-5.0) g/dL Globulin (1.7-4.1) g/dL Albumin/Globulin Ratio (1.0-2.8) Procalcitonin (<0.5) ng/mL SARS-CoV-2 (PCR) (Negative) 06/24/21 06/24/21 06/24/21 Range/Units 07:50 07:50 07:50 WBC (4.5-11.0) X10^3/uL RBC (4.0-5.2) X10^6/uL Hgb (12.0-16.0) g/dL Hct (36-46) % MCV (80-100) fL MCH (26-34) PG MCHC (30-36) % RDW (11.6-14.8) % Plt Count (150-400) X10^3/uL Neut % (Auto) (50-75) % Lymph % (Auto) (25-40) % [place] % (Auto) (3-14) % Eos % (Auto) (2-4) % Baso % (Auto) (0-2) % Neut # (Auto) (3381-0616) /uL Lymph # (Auto) (5200-6420) /uL [place] # (Auto) (0-900) /uL Eos # (Auto) (0-450) /uL Baso # (Auto) (0-100) /uL APTT 109 H* D (26.4-36.2) SECONDS ABG pH (7.35-7.45) ABG pCO2 (35-45) mmHg ABG pO2 (80-100) mmHg ABG HCO3 (22-26) mmol/L ABG Total CO2 (21-31) mmol/L ABG O2 Saturation (95-100) % ABG Base Excess (-2-2) mmol/L FiO2 Sodium 136 L (137-145) mmol/L Potassium 3.7 (3.4-5.1) mmol/L Chloride 102 (98-107) mmol/L Carbon Dioxide 28 (22-32) mmol/L BUN 17 (7-17) mg/dL Creatinine 0.57 (0.52-1.04) mg/dL Estimated GFR > 60.0 (>60) mL/min BUN/Creatinine Ratio 29.8 H (6-22) Glucose 143 H (80-110) mg/dL Lactate (0.7-2.1) mmol/L Calcium 8.0 L (8.4-10.2) mg/dL Magnesium 2.0 (1.6-2.3) mg/dL Total Bilirubin (0.2-1.3) mg/dL AST (14-36) IU/L ALT (<35) IU/L Alkaline Phosphatase (38-126) U/L Troponin I (0.01-0.034) ng/mL NT-Pro-B Natriuret Pep (<125) pg/mL Total Protein (6.3-8.2) g/dL Albumin (3.5-5.0) g/dL Globulin (1.7-4.1) g/dL Albumin/Globulin Ratio (1.0-2.8) Procalcitonin (<0.5) ng/mL SARS-CoV-2 (PCR) (Negative) 06/24/21 06/24/21 06/24/21 Range/Units 07:50 13:48 14:25 WBC (4.5-11.0) X10^3/uL RBC (4.0-5.2) X10^6/uL Hgb (12.0-16.0) g/dL Hct (36-46) % MCV (80-100) fL MCH (26-34) PG MCHC (30-36) % RDW (11.6-14.8) % Plt Count (150-400) X10^3/uL Neut % (Auto) (50-75) % Lymph % (Auto) (25-40) % [place] % (Auto) (3-14) % Eos % (Auto) (2-4) % Baso % (Auto) (0-2) % Neut # (Auto) (5891-5484) /uL Lymph # (Auto) (4965-0502) /uL [place] # (Auto) (0-900) /uL Eos # (Auto) (0-450) /uL Baso # (Auto) (0-100) /uL APTT 53 H D (26.4-36.2) SECONDS ABG pH (7.35-7.45) ABG pCO2 (35-45) mmHg ABG pO2 (80-100) mmHg ABG HCO3 (22-26) mmol/L ABG Total CO2 (21-31) mmol/L ABG O2 Saturation (95-100) % ABG Base Excess (-2-2) mmol/L FiO2 Sodium (137-145) mmol/L Potassium (3.4-5.1) mmol/L Chloride (98-107) mmol/L Carbon Dioxide (22-32) mmol/L BUN (7-17) mg/dL Creatinine (0.52-1.04) mg/dL Estimated GFR (>60) mL/min BUN/Creatinine Ratio (6-22) Glucose (80-110) mg/dL Lactate (0.7-2.1) mmol/L Calcium (8.4-10.2) mg/dL Magnesium (1.6-2.3) mg/dL Total Bilirubin (0.2-1.3) mg/dL AST (14-36) IU/L ALT (<35) IU/L Alkaline Phosphatase (38-126) U/L Troponin I 0.341 H* 0.238 H* (0.01-0.034) ng/mL NT-Pro-B Natriuret Pep (<125) pg/mL Total Protein (6.3-8.2) g/dL Albumin (3.5-5.0) g/dL Globulin (1.7-4.1) g/dL Albumin/Globulin Ratio (1.0-2.8) Procalcitonin (<0.5) ng/mL SARS-CoV-2 (PCR) (Negative) Point of Care Testing Test Results Not applicable ECG Data Attestation: I personally reviewed and interpreted this ECG as follows: (EKG, post conversion. At the time of the 2nd troponin.: Normal sinus rhythm rate 80 beats per minute. LAD. LVH. Questionable inferior lateral ischemia.) [facility] Narrative Medical decision making narrative: Patient presents with shortness of breath with minimal exertion, increased work of breathing and elevated heart rate. She has what sounds like a newly discovered murmur. She has episodes of heart rate jumping to the 180s. Initially she is given Cardizem which slowed her only briefly. She becomes significantly short of breath when her tachycardia increases. Advanced imaging shows pulmonary HTN, cardiomegally, no PE or pericardial effusion. Patient with very little reserve, she is quite sensitive to elevations in heart rate. Initially she had a very brief improvement with modified Valsalva maneuver. This was followed by push of Cardizem which slowed her briefly. When she began rising again she was moved to our [facility] [place] and was given adenosine which was unsuccessful. She was then consented for procedural sedation and electrical cardioversion which did not respond to 120 joules but after 200 joules she was no longer in an SVT and slow to a sinus rate of about 110. Along with his her blood pressure improved from the 190s down to the 120s and this improved her work of breathing and tolerance of BiPAP 0530 - called back to ICU at [facility] to discuss current clinical picture. She has made 1000mL of dilute urine and was able to come off bipap. She is currently on 8L by ID and breathing 30-40 and relatively shallow. She states she feels much better. She has good color and is perfusing well. HR is sinus tach at right around 100 and BP is 130/80. Patient and son made aware of situation and understand (and agree with) the current diagnosis and plan 1420. Care was assumed from Dr. Moe at 7:00 a.m. this morning, change of shift. The patient was in respiratory distress upon arrival. She thought she was having an asthma attack. She has no history of asthma. She was found to be in SVT in regard cardioversion as detailed above. She was was in CHF, she required careful diuresis. She was wean from BiPAP, and is on nasal cannula at 8 L when I arrived. An echo from 2010 was discovered, showing a bicuspid atrial valve with critical aortic stenosis. Apparently the patient's mother was identified as having a bicuspid valve, her valvular disease was found to follow- up on her family history. Although echo in 2010 showed critical aortic or stenosis, she was asymptomatic. She had multiple tumultuous family events, forgot about the heart valve issue, she has not had medical care for over a decade. She is currently on amiodarone, and heparin. She has been in normal sinus rhythm 90s, systolic blood pressure about 110-120. She is comfortable on 8 L nasal cannula oxygen. I have made no attempt to wean the oxygen. She received Lasix 40 mg doses x2. There was greater than 2 L of diuresis at the time of this no pain she does not have chest discomfort or dyspnea. Chronic monitoring showed no ST elevation, but initial troponin was 0.093. Heparin is initiated. The 2nd troponin, about 13 hours later, was 0.341. A 3rd troponin is improving at 0.238. She has been in the ER for greater than 16 hours, awaiting disposition. The cardiology group at [facility] was consulted initially by Dr. Moe. Dr. Wilson, hospitalist, at [facility] has now accepted the patient. As per discussion, I did administer an additional Lasix 40 mg IV. Potassium 20 mg p.o. was given.-Mustapha AGUAYO 06/24/21@1810 <Darryl Menchaca MD - Last Filed: 06/24/21 18:25> Critical Care Time Critical Care Time: Yes Total Critical Care Time: 175 Attestation: Critical care time included initial patient assessment. Initial interactions from Dr. Moe. Additional critical care was provided ongoing as the patient was in a boarding status awaiting transport. Multiple consultations were required prior to the final disposition. Discharge Plan Departure Patient Disposition: [facility] Clinical Impression: Acute decompensated heart failure, Aortic valve stenosis, critical, Pulmonary hypertension, History of supraventricular tachycardia Prescriptions: No Action [ALBUTEROL] Qty: 0 0RF [PULMICORT] 2 puff BID Qty: 0 0RF fexofenadine 180 MG tablet 180 mg PO QDAY Qty: 0 0RF CA PANTOTHENATE/FOLIC ACID/VIT (MULTIVITAMIN) 1 tab PO QDAY Qty: 0 0RF ASPIRIN (Aspir-Low) 81 mg PO Q DAY Qty: 0 0RF Fish Oil (#FISH OIL) 1 iu PO Q DAY Qty: 0 0RF montelukast [Singulair] 10 MG tablet 10 mg PO QDAY Qty: 0 0RF zolpidem [Ambien] 10 MG tablet 10 mg PO HSP Qty: 30 3RF NORTRIPTYLINE HCL (Nortriptyline HCl) 10 mg PO HS Qty: 30 6RF citalopram [Celexa] 20 MG tablet 40 mg PO QDAY Qty: 90 3RF lorazepam [Ativan] 0.5 MG tablet 0 PO SEE INSTRUCTIONS Qty: 60 0RF Referrals: Jeremías Kyle MD [Primary Care Provider] -
--- NOTE | 2021-06-23 22:40 | DI.CT.S_ITS ---
PROCEDURE: CT ANGIO CHEST PE PROTOCOL INDICATIONS: SOB, tachychypnea, tachycardia, pleural effusion TECHNIQUE: After the administration of intravenous contrast, 2 mm thick sections acquired from the pulmonary apices to the posterior costophrenic angles. 3-dimensional maximum intensity projection (MIP) coronal and sagittal reformats were then acquired through the thorax. For radiation dose reduction, the following was used: automated exposure control, adjustment of mA and/or kV according to patient size. COMPARISON: [facility], , XR CHEST 2V, 06/23/2021, 18:44. FINDINGS: Image quality: Excellent. Pulmonary arteries: Pulmonary arteries demonstrate no intraluminal filling defects to suggest central pulmonary embolism. There is enlargement the pulmonary arteries, with the main pulmonary artery measuring up to 3.1 cm suggestive of pulmonary arterial hypertension. Lungs and pleura: There is a moderate-sized right pleural effusion with associated mild compressive atelectasis. Mild left basilar atelectasis and scarring are also demonstrated. There are indistinct ground-glass opacities bilaterally with mild septal thickening suggestive of pulmonary edema. There is bilateral mild bronchial wall thickening with a perihilar predominance. No pneumothorax. Mediastinum: Heart size is enlarged, without pericardial effusion. No mediastinal or hilar adenopathy. Thoracic aorta is normal in caliber and enhancement. Esophagus is normal in caliber, without hiatal hernia. There is mild esophageal wall thickening. Bones and chest wall: No suspicious bony lesions. Ribs and thoracic spine appear intact throughout. Visualized thyroid demonstrates no discrete nodule. No axillary or supraclavicular adenopathy. Abdomen: Visualized upper abdominal solid organs appear normal in the early arterial phase of enhancement. IMPRESSION: 1. No evidence of pulmonary embolism. 2. Enlargement of the pulmonary arteries suggestive of pulmonary arterial hypertension. 3. Moderate-sized right pleural effusion with associated compressive atelectasis. 4. Mild bilateral bronchial wall thickening may reflect sequelae of bronchiolitis or aspiration. Dictated by: Cordell Whittington M.D. on 06/23/2021 at 23:18 Approved by: Cordell Whittington M.D. on 06/23/2021 at 23:25
[2021-06-23] MEDS: dilTIAZem 5 MG/ML SDV 10 MG IV (23:30)
--- NOTE | 2021-06-23 23:53 | RT ---
pt on v60 at this time extremely anxious
[2021-06-24] VITALS (86 sets, daily range): BP systolic 102–193; BP diastolic 59–111; PULSE 79–145; RESP 5–67; O2SAT 92–100
[2021-06-24] MEDS: ADENOSINE 6 MG/2 ML VIAL IV (00:05)
[2021-06-24] MEDS: ADENOSINE 6 MG/2 ML VIAL 12 MG IV (00:08)
[2021-06-24] MEDS: propofoL 200 MG/20 ML VIAL 55 MG IV (00:34)
[2021-06-24 01:10] LABS: COVID19 -Nasal RAPID Negative (Negative)
[2021-06-24] MEDS: AMIODARONE 150 MG/100 ML PIGGYBACK 600 MG IV (01:37)
[2021-06-24] MEDS: AMIODARONE 360 MG/200 ML PIGGYBACK 33.33 MG IV (01:49)
[2021-06-24] MEDS: HEPARIN 5,000 UNIT/ML VIAL 4000 UNIT IV (01:54)
[2021-06-24 02:00] LABS: PTT Partial Thromboplastin Tim 27 SECONDS (26.4-36.2)
[2021-06-24] MEDS: LORazepam 2 MG/ML INJ 0.5 MG IV (02:09)
[2021-06-24] MEDS: HEPARIN DRIP 25,000 UNIT/500 ML IV.SOLN 20 UNIT IV (02:15)
[2021-06-24] MEDS: FUROSEMIDE 40 MG/4 ML VIAL IV ×3 (02:29→17:55)
--- NOTE | 2021-06-24 02:38 | RT ---
ABG RESULT , PH 7.33, CO2 45.8, PO2 276, BE -1, HCO3 24.4 , TCO2 26 , SO2 100% THIS WAS TAKEN ON BIPAP / FIO2 100% , I HAVE WEANED DOWN THE FIO2 POST ABG TO 60%
[2021-06-24 02:45] LABS: PCO2 ABG 45.8 mmHg (35-45); TCO2 ABG 26 mmol/L (21-31); pH ABG 7.33 (7.35-7.45)
[2021-06-24 02:46] LABS: Fractionated Inspired Oxygen 100; HCO3 ABG 24 mmol/L (22-26); Oxygen Saturation ABG 100 % (95-100)
[2021-06-24] MEDS: ACETAMINOPHEN 325 MG TABLET 650 MG PO ×2 (05:45→15:36)
[2021-06-24] MEDS: AMIODARONE 360 MG/200 ML PIGGYBACK 16.7 MG IV ×2 (07:41→18:52)
[2021-06-24 08:01] LABS: Hematocrit 37.2 % (36-46); Hemoglobin 12.4 g/dL (12.0-16.0)
[2021-06-24 08:23] LABS: BUN Creatinine Ratio 29.8 (6-22); Blood Urea Nitrogen 17 mg/dL (7-17); Carbon Dioxide 28 mmol/L (22-32); Chloride 102 mmol/L (98-107); Estimated Glomerular Filt Rate > 60.0 mL/min (>60); Glucose 143 mg/dL (80-110); HEMOLYSIS < 15 (0-50); Potassium 3.7 mmol/L (3.4-5.1); Sodium 136 mmol/L (137-145)
[2021-06-24 08:36] LABS: PTT Partial Thromboplastin Tim 109 SECONDS (26.4-36.2)
[2021-06-24 09:09] LABS: Troponin I 0.341 ng/mL (0.01-0.034)
[2021-06-24 14:12] LABS: PTT Partial Thromboplastin Tim 53 SECONDS (26.4-36.2)
--- NOTE | 2021-06-24 15:18 | PC.NURSE ---
Assuming care of pt from YAKELIN Bob. Pt appears in no acute distress, states she feels the best she has since shes been here besides a slight head ache, requesting Tylenol. O2 via NC at 7L satting 96%, lungs sounds clear. BP and HR stable. IVs intact and patent. Heparin and Amio infusing and NS at KVO. [place] present. Will ask for Tylenol
[2021-06-24 15:24] LABS: Troponin I 0.238 ng/mL (0.01-0.034)
--- NOTE | 2021-06-24 16:06 | PC.NURSE ---
Pt given applesauce per Dr. Menchaca
--- NOTE | 2021-06-24 16:39 | PC.NURSE ---
[facility] [phone] ex [phone]
[2021-06-24] MEDS: POTASSIUM CHLORIDE 20 MEQ TAB PO (17:55)
[2021-06-24 18:34] LABS: PO2 ABG 276 mmHg (80-100)
--- NOTE | 2021-06-24 18:45 | PC.NURSE ---
IV meds being continued en route with EMS, just paused in the MAR for billing department
--- NOTE | 2021-06-24 18:53 | PC.NURSE ---
New bag of Amio given to EMS for transport. Given to YAKELIN Mathew
== END 2021-06-24 19:09 | disposition short-term general hospital (02) ==
PROVIDERS: Emergency Medicine; Emergency Provider Emergency Medicine; PCP Internal Medicine
DX: I50.9 Heart failure, unspecified (principal); I35.0 Nonrheumatic aortic (valve) stenosis; I27.20 Pulmonary hypertension, unspecified; I47.1 Supraventricular tachycardia; Z88.2 Allergy status to sulfonamides; Z20.822 Contact with and (suspected) exposure to COVID-19
CPT/HCPCS: 36415; 36600; 71046; 71275; 80048; 80053; 82805; 83605; 83735; 83880; 84145; 84484; 85014; 85018; 85025; 85730; 87635; 92960; 93005; 94660; 96365; 96366; 96367; 96368; 96375; 96376; 99152; 99153; 99285; 99291; 99292; C9803; J0153; J0282; J1644; J1940; J2060; J2704; Q9967

== ENCOUNTER 2022-02-26 10:15 | Outpatient (RCR) | payer OTHER, SELFPAY ==
[2021-06-24 01:11] VITALS: PULSE 100; RESP 25; O2SAT 98
== END 2022-02-26 14:15 ==
LOC: CAR 10:15
PROVIDERS: PCP Internal Medicine; Referring Provider Physician Assistant; Visit Provider Physician Assistant
DX: Z95.2 Presence of prosthetic heart valve (principal)
CPT/HCPCS: 93798